=== PATIENT | female | born 1970 | race Caucasian/White ===

== ENCOUNTER → 2017-05-03 | Outpatient (CLI) | payer BC ==
--- NOTE | ~2017-05-03 | MY29 ---
[facility] A Service of [facility] RADIOLOGY TEXT RESULTS PATIENT: SHEBA MORE LOCATION: [facility] : [birth year] UNIT #: [id number] AGE: [address]: Wolfgang Hubbard MD SEX: F ORDER DR: [id number] [facility] [address] [place], [place] [address] [id number] O MR#: [id number] Acc #: [id number] NAME: SHEBA MORE : 1970 SEX: F STUDY DATE/TIME: 05/03/2017 16:54 UNIT: [facility] ROOM: STUDY DESCRIPTION: MY JAVY SCREENING W/ CAD BILAT Attending Physician: Wolfgang Hubbard M.D. Referring Physician: Wolfgang Hubbard M.D. Ordering Physician: Wolfgang Hubbard M.D. Primary Care Physician: Wolfgang Hubbard M.D. MEDICAL IMAGING REPORT This report is preliminary unless electronic signature is present EXAM Bilateral Digital Screening Mammogram with CAD INDICATION Breast cancer screening. 46-year-old asymptomatic female. No personal or family history of breast cancer. COMPARISON July 02, 2010 FINDINGS The breasts are almost entirely fatty. No suspicious findings are present. IMPRESSION No mammographic evidence of malignancy. Annual screening mammography and clinical breast exam are recommended. A result letter will be sent to the patient. Patients over the age of 40 are entered into a reminder system with target due date for the next mammogram. BIRADS: 1 Negative Dictated by... Tulio Tran M.D. THIS IS AN ELECTRONICALLY VERIFIED REPORT Tulio Tran M.D. at 05/05/2017 10:23 AM MADELIN/bev TD: 05/04/2017 03:03 [facility] A Service of [facility] RADIOLOGY TEXT RESULTS PATIENT: SHEBA MORE LOCATION: [facility] : [birth year] UNIT #: [id number] AGE: [address]: Wolfgang Hubbard MD SEX: F ORDER DR: JOB #: [id number] MEDICAL IMAGING REPORT Page 1 of 1 COPY
== END | disposition home or self-care (01) ==
LOC: CWCC 16:30
DX: Z12.31 Encounter for screening mammogram for malignant neoplasm of breast (principal)
CPT/HCPCS: G0202